=== PATIENT | female | born 1990 | race Caucasian/White ===

== ENCOUNTER 2024-05-08 10:03 | Emergency (ER) | payer OTHER, SELFPAY ==
[2024-05-08 11:09] LABS: Absolute Basophils 0.1 K/uL (0-0.5); Absolute Eosinophils 0.1 K/uL (0-0.5); Absolute Lymphocytes (CBC) 1.6 K/uL (0.7-4.9); Absolute Monocytes 0.7 K/uL (0.1-1.3); Absolute Neutrophil 7.3 K/uL (1.8-8.0); Basophils % 0.5 % (0-1.3); Eosinophils % 0.7 % (0-4.4); Hematocrit 40.4 % (36.0-45.0); Hemoglobin 13.7 g/dL (12.0-15.0); Lymphocytes % 16.7 % (15.3-44.8); MCH 28.7 pg (27.0-35.0); MCHC 33.9 g/dL (32.0-36.0); MCV 84.8 fL (80-100); Monocytes % 7.2 % (3.3-12.3); Neutrophils % 74.9 % (41.7-73.7); Nucleated Red Blood Cells % 0.1 % (0-0); Platelets 319 thou/uL (152-406); RBC Red Blood Cell Count 4.77 M/uL (3.86-4.86); Red Cell Distribution Width 13.3 % (12.1-15.2)
[2024-05-08 11:12] LABS: Specific Gravity 1.024 (1.005-1.030); Sqamous Epithelial <5 /HPF (None Seen); Urine Bacteria <20 /HPF (<20); Urine Bilirubin NEGATIVE (Negative); Urine Blood Negative (Negative); Urine Clarity Turbid (Clear); Urine Color Light-Yellow (Yellow); Urine Culture Reflex Order NOT NEEDED; Urine Glucose NEGATIVE (Negative); Urine Ketones NEGATIVE (Negative); Urine Microscopic Reflex YN ORDER UMIC; Urine Mucus Slight /HPF (None Seen); Urine Nitrite NEGATIVE (Negative); Urine Protein NEGATIVE (Negative); Urine RBC <5 /HPF (None Seen); Urine Urobilinogen Normal (Normal); Urine WBC <5 /HPF (<5); Urine pH 5.5 (5.0-7.0)
[2024-05-08 11:22] LABS: Specific Gravity 1.024 (1.005-1.030)
[2024-05-08 11:27] LABS: Albumin 3.8 g/dL (3.4-5.0); Anion Gap 9.6 mEq/L (5.0-15.0); Bilirubin Total 0.6 mg/dL (0.2-1.0); Globulin 3.9 g/dL (2.3-3.5); Potassium 3.6 mEq/L (3.5-5.1); Protein, Total 7.7 g/dL (6.4-8.2)
--- NOTE | 2024-05-08 12:05 | RAD REPORT ---
EXAMINATION: US Transvaginal Study Probe CLINICAL INDICATION: Female 34 years old.[facility] 18 days ago RLQ -- assess ovarian flow;Abd pain Bed Name: 18 TECHNIQUE: Real-time ultrasonography of the pelvis was performed transvaginally. Color and spectral D oppler evaluation of the ovaries was performed. COMPARISON: No prior exam. FINDINGS: UTERUS AND CERVIX: The uterus measures 8.0 cm in length. The uterus is normal. No masses seen The end ometrium is diffusely mildly prominent, 1.1 cm in thickness. RIGHT OVARY: Ovoid cyst with debris measuring 2.4 x 2.1 x 2.4 cm. The right ovary measures 4.6 x 2.9 x 3.7 cm. Normal color and spectral Doppler evaluation of the right ovary.. LEFT OVARY: Normal The left ovary measures 2.7 x 1.8 x 1.7 cm. Normal color and spectral Doppler evaluation of the left ovary.. FREE FLUID: Small volume free fluid in the cul-de-sac and right adnexal region. IMPRESSION: Dominant complex 2.4 cm cyst in the right ovary, may represent a hemorrhagic cyst. Small volume free fluid in the cul-de-sac and right adnexal region.
--- NOTE | 2024-05-08 12:41 | RAD REPORT ---
EXAMINATION: CT Abdomen Pelvis W Contrast CLINICAL INDICATION: Female, 34 years old. RLQ Pain;Abd pain TECHNIQUE: CT abdomen and pelvis was performed, after the administration of IV contrast, as per [facility] protocol. Axial, sagittal and coronal reconstructions were obtained. One or more of the following dose reduction techniques were used: Automated exposure control, adjustment of the mA and k V according to patient size, and iterative reconstruction. Unless otherwise specified, incidental findings do not require dedicated imaging follow-up. COMPARISON: No prior exam. FINDINGS: LOWER CHEST: The visualized lung bases are clear. LIVER: Normal in size and contour. No focal lesion. BILIARY SYSTEM: No suspicious abnormalities. SPLEEN: Normal size. No focal lesion. PANCREAS: No mass, ductal dilation, or hailey-pancreatic fluid. ADRENALS: Normal; no mass. KIDNEYS: Normal size and contour. No hydronephrosis. URINARY BLADDER: Unremarkable. GASTROINTESTINAL TRACT: No evidence of free air, significant intra-abdominal free fluid, bowel obstru ction or abscess. APPENDIX: Normal appendix. LYMPH NODES: No lymphadenopathy. MUSCULOSKELETAL: No acute or suspicious osseous abnormality. ADDITIONAL FINDINGS: Dominant right ovarian 2.5 cm cyst, better characterized on pelvic ultrasound of the same day. Trace right adnexal/cul-de-sac fluid, favored to be physiologic. IMPRESSION: No acute or concerning abnormalities seen in the abdomen or pelvis. Dominant right ovarian 2.5 cm cyst, better characterized on pelvic ultrasound of the same day.
--- NOTE | 2024-05-08 12:46 | ER ---
Nurse's Notes [facility] Name: Toya Santizo Age: 34 yrs Sex: Female : 1990 Arrival Date: 05/08/2024 Time: 10:03 Bed 18 Private MD: Diagnosis: Right ovarian cyst, abdominal pain Presentation: 05/08 10:25 Chief complaint: Patient states: RLQ pain x 3 days. Coronavirus screen: Client denies ss travel out of the [place] in the last 14 days. Ebola Screen: Patient denies exposure to infectious person. Patient denies travel to an Ebola-affected area in the 21 days before illness onset. Initial Sepsis Screen: Does the patient meet any 2 criteria? No. Patient's initial sepsis screen is negative. Does the patient have a suspected source of infection? No. Patient's initial sepsis screen is negative. Risk Assessment: Do you want to hurt yourself or someone else? Patient reports no desire to harm self or others. Onset of symptoms was May 04, 2024. 10:25 Method Of Arrival: Ambulatory ss 10:25 Acuity: ADELSO 3 ss Triage Assessment: 10:26 General: Appears in no apparent distress. comfortable, Behavior is calm, cooperative. ss Pain: Complains of pain in right lower quadrant Pain began 2-3 days ago. Is continuous. Neuro: Level of Consciousness is awake, alert, obeys commands, Oriented to person, place, time, situation. Respiratory: Airway is patent Respiratory effort is even, unlabored, Respiratory pattern is regular, symmetrical. Derm: Skin is pink, warm \T\ dry. 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, unknown ss Historical: - Allergies: 10:26 No Known Allergies; ss - Home Meds: 10:26 Prozac [Active]; ss - PMHx: 10:26 Anxiety; ss - PSHx: 10:26 None; ss Screenin:30 [facility] ED Fall Risk Assessment (Adult) History of falling in the last 3 months, aa5 including since admission No falls in past 3 months (0 pts) Confusion or Disorientation No (0 pts) Intoxicated or Sedated No (0 pts) Impaired Gait No (0 pts) Mobility Assist Device Used No (0 pt) Altered Elimination No (0 pt) Score/Fall Risk Level 0 - 2 = Low Risk Oriented to surroundings, Maintained a safe environment, Educated pt \T\ family on fall prevention, incl call for assistance when getting out of bed, Assessed \T\ reinforced patient's understanding of fall precautions. Abuse screen: Denies threats or abuse. Nutritional screening: No deficits noted. Tuberculosis screening: No symptoms or risk factors identified. Assessment: 10:30 General: Appears in no apparent distress. comfortable, well groomed, Behavior is calm, aa5 cooperative, appropriate for age. Pain: Complains of pain in right lower quadrant Pain does not radiate. Pain currently is 3 out of 10 on a pain scale. Quality of pain is described as crampy, Pain began 2-3 days ago. Is intermittent. Neuro: Level of Consciousness is awake, alert, obeys commands, Oriented to person, place, time, situation, Appropriate for age. Cardiovascular: Patient's skin is warm and dry. Respiratory: Respiratory effort is even, unlabored, Respiratory pattern is regular, symmetrical. GI: Abdomen is round Bowel sounds present X 4 quads. Abd is soft Abdomen is tender to palpation in right lower quadrant Reports lower abdominal pain, nausea, Patient currently denies vomiting. : No signs and/or symptoms were reported regarding the genitourinary system. EENT: No signs and/or symptoms were reported regarding the EENT system. Derm: Skin is pink, warm \T\ dry. Musculoskeletal: Range of motion: intact in all extremities. 11:30 Reassessment: Patient is alert, oriented x 3, equal unlabored respirations, skin aa5 warm/dry/pink. 13:45 Reassessment: Patient is alert, oriented x 3, equal unlabored respirations, skin aa5 warm/dry/pink. Vital Signs: 10:25 BP 143 / 82; Pulse 83; Resp 16; Temp 97.1(O); Pulse Ox 99% on R/A; ss 13:00 BP 138 / 78; Pulse 78; Resp 16 S; Pulse Ox 99% on R/A; aa5 ED Course: 10:08 Patient arrived in ED. cj3 10:09 Brianda Rodriguez MD is Attending Physician. sp3 10:13 Alma Rich, RN is Primary Nurse. aa5 10:26 Triage completed. ss 10:26 Arm band placed on right wrist. ss 10:30 Patient has correct armband on for positive identification. Bed in low position. Call aa5 light in reach. Side rails up X 1. 10:57 CBC with Diff Sent. aa5 10:57 CMP Sent. aa5 10:57 Lipase Sent. aa5 10:57 Test, Urine Sent. aa5 10:57 Urinalysis w/ reflexes Sent. aa5 11:02 Inserted saline lock: 20 gauge in right antecubital area, using aseptic technique. aa5 Blood collected. Flushed with 10 mL NS. 11:20 US Transvaginal Study (Probe) In Process Unspecified. EDMS 11:30 CT Abd/Pelvis - IV Contrast Only In Process Unspecified. EDMS 13:45 No provider procedures requiring assistance completed. IV discontinued, intact, aa5 bleeding controlled, No redness/swelling at site. Pressure dressing applied. Administered Medications: No medications were administered Medication: 10:30 VIS not applicable for this client. aa5 Outcome: 12:46 Discharge ordered by . sp3 13:45 Discharged to home ambulatory, aa5 13:45 Condition: stable 13:45 Discharge instructions given to patient, Instructed on discharge instructions, follow up and referral plans. medication usage, Demonstrated understanding of instructions, follow-up care, medications, Prescriptions given X 1, 13:49 Patient left the ED. aa5 Signatures: Dispatcher [employer] Alma Pastrana, MYLES RN aa5 Marion Vital, MYLES RN Brianda De Dios MD MD sp3 Michelle Tamayo 3
--- NOTE | 2024-05-08 12:46 | EDPHYS ---
Physician Documentation [facility] Name: Toya Santizo Age: 34 yrs Sex: Female : 1990 Arrival Date: 05/08/2024 Time: 10:03 Bed 18 Private MD: ED Physician Brianda Rodriguez HPI: 05/08 10:24 This 34 yrs old Female presents to ER via Unassigned with complaints of Lower Abdominal sp3 Pain. 10:24 34-year-old female with no significant past medical history presents with right lower sp3 quadrant pain for 3 days with LMP 18 days ago. Patient states that the pain also radiates to her back on the right lower side. She denies any other symptoms including fever, vomiting, diarrhea, dysuria, visualized hematuria, vaginal discharge or bleeding, or any other signs or symptoms on ROS at this time.. 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, unknown ss Historical: - Allergies: 10:26 No Known Allergies; ss - Home Meds: 10:26 Prozac [Active]; ss - PMHx: 10:26 Anxiety; ss - PSHx: 10:26 None; ss ROS: 10:26 Constitutional: Negative for fever, chills, and weight loss, Eyes: Negative for injury, sp3 pain, redness, and discharge, ENT: Negative for injury, pain, and discharge, Neck: Negative for injury, pain, and swelling, Cardiovascular: Negative for chest pain, palpitations, and edema, Respiratory: Negative for shortness of breath, cough, wheezing, and pleuritic chest pain, Back: Negative for injury and pain, MS/Extremity: Negative for injury and deformity, Skin: Negative for injury, rash, and discoloration, Neuro: Negative for headache, weakness, numbness, tingling, and seizure, Psych: Negative for depression, anxiety, suicide ideation, homicidal ideation, and hallucinations, Allergy/Immunology: Negative for hives, rash, and allergies, Endocrine: Negative for neck swelling, polydipsia, polyuria, polyphagia, and marked weight changes, 10:26 All other systems are negative, Exam: 10:27 Constitutional: This is a well developed, well nourished patient who is awake, alert, sp3 and in no acute distress. Head/Face: Normocephalic, atraumatic. Eyes: Pupils equal round and reactive to light, extra-ocular motions intact. Lids and lashes normal. Conjunctiva and sclera are non-icteric and not injected. Cornea within normal limits. Periorbital areas with no swelling, redness, or edema. Neck: Trachea midline, no thyromegaly or masses palpated, and no cervical lymphadenopathy. Supple, full range of motion without nuchal rigidity, or vertebral point tenderness. No Meningismus. Chest/axilla: Normal chest wall appearance and motion. Nontender with no deformity. No lesions are appreciated. Cardiovascular: Regular rate and rhythm with a normal S1 and S2. No gallops, murmurs, or rubs. Normal PMI, no JVD. No pulse deficits. Respiratory: Lungs have equal breath sounds bilaterally, clear to auscultation and percussion. No rales, rhonchi or wheezes noted. No increased work of breathing, no retractions or nasal flaring. Back: No spinal tenderness. No costovertebral tenderness. Full range of motion. Skin: Warm, dry with normal turgor. Normal color with no rashes, no lesions, and no evidence of cellulitis. MS/ Extremity: Pulses equal, no cyanosis. Neurovascular intact. Full, normal range of motion. Neuro: Awake and alert, GCS 15, oriented to person, place, time, and situation. Cranial nerves II-XII grossly intact. Motor strength 5/5 in all extremities. Sensory grossly intact. Cerebellar exam normal. Normal gait. Psych: Awake, alert, with orientation to person, place and time. Behavior, mood, and affect are within normal limits. 10:27 Abdomen/GI: Right lower quadrant pain to palpation without peritoneal signs, rebound or guarding. No right CVA tenderness noted., Vital Signs: 10:25 BP 143 / 82; Pulse 83; Resp 16; Temp 97.1(O); Pulse Ox 99% on R/A; ss 13:00 BP 138 / 78; Pulse 78; Resp 16 S; Pulse Ox 99% on R/A; aa5 MDM: 10:09 Medical Screening Exam initiated sp3 10:27 Data reviewed: vital signs, nurses notes, lab test result(s), radiologic studies. ED sp3 course: 34-year-old female with right lower quadrant abdominal pain. Differential diagnosis includes appendicitis, ovarian cyst, UTI/pyelonephritis spectrum, kidney stone/ureterolithiasis spectrum, other colitis or GI pathology, musculoskeletal pain, among others. Workup will be broad and include CT scan of the abdomen pelvis with IV contrast, ultrasound transvaginal assessing ovarian flow, general labs, UA, hCG and general supportive care. Patient declined any pain or nausea medication at this time. Disposition pending workup and patient course.. 12:45 ED course: Workup demonstrates 2.5 cm right ovarian hemorrhagic cyst with good arterial sp3 blood flow. CT scan negative for appendicitis any other abnormality in the abdomen pelvis. Laboratory values within normal limits. UA negative for UTI and . Disposition will be discharged home on oral pain medication as needed and follow-up with gynecology.. 05/08 10:23 Order name: CBC with Diff; Complete Time: 11:28 sp3 05/08 10:23 Order name: CMP; Complete Time: 11:28 sp3 05/08 10:23 Order name: Lipase; Complete Time: 11:28 sp3 05/08 10:23 Order name: Test, Urine; Complete Time: 11:28 sp3 05/08 10:23 Order name: Urinalysis w/ reflexes; Complete Time: 11:28 sp3 05/08 10:23 Order name: CT Abd/Pelvis - IV Contrast Only; Complete Time: 12:44 sp3 05/08 10:23 Order name: US Transvaginal Study (Probe); Complete Time: 12:44 sp3 05/08 10:23 Order name: IV Saline Lock; Complete Time: 10:57 sp3 05/08 10:23 Order name: Labs collected and sent; Complete Time: 10:57 sp3 05/08 10:23 Order name: NPO; Complete Time: 10:57 sp3 Administered Medications: No medications were administered Disposition Summary: 05/08/24 12:46 Discharge Ordered Notes: Location: Home sp3 Condition: Stable sp3 Diagnosis - Right ovarian cyst, abdominal pain sp3 Followup: sp3 - With: Private Physician - When: Upon discharge from the Emergency Department - Reason: Continuance of care Discharge Instructions: - Discharge Summary Sheet sp3 - Ovarian Cyst sp3 Forms: - Medication Reconciliation Form sp3 - Antibiotic Education sp3 - Prescription Opioid Use sp3 - Patient Portal Instructions sp3 - Leadership Thank You Letter sp3 Prescriptions: - Diclofenac Sodium 75 mg Oral Tablet Sustained Release - take 1 tablet ORAL route 2 times per day; 30 tablet; Refills: 0, Product sp3 Selection Permitted Signatures: Dispatcher [employer] Marion Thorpe RN RN ss Brianda Rodriguez MD MD sp3
[2024-05-08 14:09] VITALS: BP 143/82; TEMP 97.1; O2SAT 99
== END 2024-05-08 13:49 | disposition home or self-care (01) ==
LOC: ER 10:03
DX: N83.201 Unspecified ovarian cyst, right side (principal)
CPT/HCPCS: 36415; 74177; 76830; 80053; 81001; 81025; 83690; 85025; 99284